=== PATIENT | female | born 1980 | race Asian ===

== ENCOUNTER 2020-04-10 11:02 | Emergency (ER) | payer BC, OTHER ==
[~2020-04-10] VITALS: Ht 152.4 cm; Wt 79.4 kg
[2020-04-10] MEDS ORDERED: ATEN25TA PO (11:23)
[2020-04-10] MEDS ORDERED: ACETAMINOPHEN ES 500 MG TABLET PO ONE (11:30)
[2020-04-10] MEDS ORDERED: IV NORMAL SALINE 1000 ML BAG IV ONE (11:30)
[2020-04-10] MEDS ORDERED: METOCLOPRAMIDE HCL 10 MG/2 ML VIAL IV ONE (11:30)
--- NOTE | 2020-04-10 11:30 | NUR ---
PATIENT WAS SEEN BY MD. IV PLACED. MEDICATIONS GIVEN ORDERED. PLACED ON A MONITOR.
[2020-04-10] MEDS ORDERED: ACETAMINOPHEN ES 500 MG TABLET ONE (11:44)
[2020-04-10] MEDS ORDERED: METOCLOPRAMIDE HCL 10 MG/2 ML VIAL ONE (11:44)
[2020-04-10 11:45] LABS: BASOPHILS % (AUTO) 0.3 % (0.0-2.0); EOSINOPHILS % (AUTO) 0.2 % (0.0-7.0); HEMOGLOBIN 14.3 g/dL (10.9-14.3); LYMPHOCYTES # (AUTO) 1.6 K/uL (20.0-40.0); LYMPHOCYTES % (AUTO) 14.8 % (20.5-51.5); MEAN CORPUSCULAR HGB CONC 33 g/dL (32.3-35.6); MEAN CORPUSCULAR VOLUME 89.9 fL (75.5-95.3); MONOCYTES # (AUTO) 0.6 K/uL (2.0-10.0); MONOCYTES % (AUTO) 5.7 % (0.0-11.0); NEUTROPHILS # (AUTO) 8.6 K/uL (1.8-8.9); PLATELET COUNT (AUTO) 229 K/uL (179-408); RED BLOOD CELL COUNT(AUTO) 4.78 MIL/uL (3.63-4.92)
--- NOTE | 2020-04-10 11:54 | NUR ---
PATIENT STATES NAUSEA AND HEADACHE HAVE DIMINISHED.
[2020-04-10 13:12] LABS: BILIRUBIN,DIRECT 0.1 mg/dL (0.0-0.2); BILIRUBIN,TOTAL 0.6 mg/dL (0.2-1.0); CREATININE 0.9 mg/dL (0.6-1.3); POTASSIUM 3.5 mmol/L (3.5-5.1)
--- NOTE | 2020-04-10 13:18 | NUR ---
PATIENT DRANK 2-3 OZ OF JUICE AND ATE CRACKERS WITH NO REPORT OF NAUSEA.
--- NOTE | 2020-04-10 13:19 | NUR ---
IV removed. Catheter intact and site benign. Pressure and 4x4 gauze applied to site. No bleeding noted.
--- NOTE | 2020-04-10 13:50 | NUR ---
BP HIGH. PATIENT STATE SHE DOES HAVE HIGH BP ANDTAKES MEDICINE FOR IT. DR AC AWARE OF BP AND GAVE HER INSTRUCTIONS ON NEXT STEP FOR HIGH BP TODAY.
--- NOTE | 2020-04-10 13:56 | NUR ---
DC AND FOLLOW UP INSTRUCTIONS GIVEN AND EXPLAINED TO PATIENT WHO STATES SHE UNDERSTANDS ALL INSTRUCTIONS.
== END 2020-04-10 14:01 | disposition home or self-care (01) ==
LOC: ER 11:02
DX: R11.0 Nausea (principal); R51 Headache; I10 Essential (primary) hypertension; I44.5 Left posterior fascicular block; Z79.899 Other long term (current) drug therapy
CPT/HCPCS: 36415; 80048; 80076; 83690; 85025; 93005; 96361; 96374; 99285; J2765; A4663; A9150; J7030